=== PATIENT | female | born 1960 | race American Indian/Alaskan Native ===

== ENCOUNTER 2021-07-25 19:44 | Emergency (ER) | payer BC, OTHER ==
[~2021-07-25] VITALS: Ht 154.9 cm; Wt 62.6 kg
[~2021-07-25 19:44] MED LIST: AMOXICILLIN500 MG PO; AUGMENTIN 875-1 EACH PO; CIPRO500 MG PO; CLARITHROMYCIN500 MG PO; CLINDAMYCIN HC300 MG PO; FLUCONAZOLE200 MG PO; METRONIDAZOLE500 MG PO; NORCO 5-325 TA1 EACH PO; OMEPRAZOLE20 MG PO; SYNTHROID100 MCG PO; SYNTHROID50 MCG PO; VITAMIN D5000 UNIT PO
[2021-07-25] MEDS ORDERED: SYNTHROID50 MCG PO (21:40)
== END 2021-07-25 23:13 | disposition home or self-care (01) ==
LOC: ED 19:44
DX: R35.0 Frequency of micturition (principal); R10.30 Lower abdominal pain, unspecified; E03.9 Hypothyroidism, unspecified; Z87.891 Personal history of nicotine dependence; Z88.0 Allergy status to penicillin; Z88.2 Allergy status to sulfonamides; Z91.040 Latex allergy status; Z88.8 Allergy status to other drugs, medicaments and biological substances; Z79.899 Other long term (current) drug therapy
CPT/HCPCS: 81001; 99283

== ENCOUNTER 2021-11-15 21:59 | Emergency (ER) | payer BC, OTHER ==
[~2021-11-15] VITALS: Ht 154.9 cm; Wt 57.6 kg
== END 2021-11-16 02:27 | disposition home or self-care (01) ==
LOC: ED 21:59
DX: R10.31 Right lower quadrant pain (principal); R10.32 Left lower quadrant pain; E03.9 Hypothyroidism, unspecified; Z87.891 Personal history of nicotine dependence; Z88.0 Allergy status to penicillin; Z88.8 Allergy status to other drugs, medicaments and biological substances; Z88.1 Allergy status to other antibiotic agents; Z88.2 Allergy status to sulfonamides; Z91.040 Latex allergy status; Z79.899 Other long term (current) drug therapy
CPT/HCPCS: 36415; 74177; 80053; 81001; 83690; 85025; 96374; 99284-25; J1885; Q9967

== ENCOUNTER 2021-12-03 07:37 | Emergency (ER) | payer BC, OTHER ==
[~2021-12-03] VITALS: Ht 154.9 cm; Wt 57.6 kg
--- OUTSIDE RECORDS SUMMARY | 2021-12-03 07:40 | XMS ---
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 - 2 Visits in 30 Days CARE PROVIDERS There are no care providers on record at this time. Prosper has no Care Guidelines for this patient. Stephany VISIT COUNT (12 MO.) 3 [facility] TOTAL 3 NOTE: Visits indicate total known visits. 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 therapy - Allergy status to penicillin - Allergy status to other drugs, medicaments and biological substances - Allergy status to other antibiotic agents - Personal history of nicotine dependence - Hypothyroidism, unspecified - Allergy status to sulfonamides - Right lower quadrant pain - Dysuria 07/25/2021 19:44 [facility] [place] TYPE: Emergency COMPLAINT: - URINE PROBLEM DIAGNOSES: - Personal history of nicotine dependence - Hypothyroidism, unspecified - Lower abdominal pain, unspecified - Other long term care pharmacist (current) drug therapy - Latex allergy status - Frequency of micturition - Urgency of urination - Allergy status to sulfonamides - Allergy status to penicillin - Allergy status to other drugs, medicaments and biological substances INPATIENT VISIT TRACKING (12 MO.) No inpatient visits to display in this time frame [email or web address]
== END 2021-12-03 11:23 | disposition home or self-care (01) ==
LOC: ED 07:37
DX: R10.32 Left lower quadrant pain (principal); K59.00 Constipation, unspecified; E03.9 Hypothyroidism, unspecified; Z87.891 Personal history of nicotine dependence; Z88.0 Allergy status to penicillin; Z88.2 Allergy status to sulfonamides; Z91.040 Latex allergy status; Z88.8 Allergy status to other drugs, medicaments and biological substances
CPT/HCPCS: 36415; 74177; 80053; 81001; 83690; 85025; 96361; 96374; 99284-25; J1885; J7030; Q9967

== ENCOUNTER 2022-03-06 22:06 | Emergency (ER) | payer BC, OTHER ==
[~2022-03-06] VITALS: Ht 154.9 cm; Wt 57.6 kg
--- OUTSIDE RECORDS SUMMARY | 2022-03-06 22:08 | XMS ---
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 Prosper has no Care Guidelines for this patient. Stephany VISIT COUNT (12 MO.) 4 [facility] TOTAL 4 NOTE: Visits indicate total known visits. ED/UCC VISIT TRACKING (12 MO.) 03/06/2022 22:06 [facility] [place] TYPE: Emergency COMPLAINT: - ABDOMINAL PAIN/POST OP PROBLEM 12/03/2021 07:[address] [facility] [place] TYPE: Emergency COMPLAINT: - LOWER L ABD PAIN, RACING HEART, NAUSEA, DIZZY DIAGNOSES: - Allergy status to penicillin - Hypothyroidism, unspecified - Allergy status to other drugs, medicaments and biological substances - Allergy status to sulfonamides - Personal history of nicotine dependence - Latex allergy status - Constipation, unspecified - Left lower quadrant pain 11/15/2021 22:00 [facility] [place] TYPE: Emergency COMPLAINT: - URINE PROBLEM DIAGNOSES: - Dysuria - Left lower quadrant pain - Allergy status to sulfonamides - Personal history of nicotine dependence - Allergy status to other drugs, medicaments and biological substances - 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
[2022-03-06] MEDS ORDERED: HYDROCODON-ACE1 EA10 PO (22:15)
[2022-03-06] MEDS ORDERED: ONDANSETRON ODT8 MG PO (23:51)
[2022-03-06] MEDS ORDERED: DILAUDID2 MG PO (23:51)
[2022-03-06] MEDS ORDERED: CIPRO500 MG PO (23:51)
== END 2022-03-07 01:04 | disposition home or self-care (01) ==
LOC: ED 22:06
DX: N13.2 Hydronephrosis with renal and ureteral calculous obstruction (principal); E03.9 Hypothyroidism, unspecified; Z87.891 Personal history of nicotine dependence; Z88.0 Allergy status to penicillin; Z88.8 Allergy status to other drugs, medicaments and biological substances; Z88.2 Allergy status to sulfonamides; Z91.040 Latex allergy status; Z79.899 Other long term (current) drug therapy
CPT/HCPCS: 36415; 74176; 80053; 81001; 85025; 87088; 96374; 96375; 99284-25; A9270; J1170; J1885; J2405; J7030

== ENCOUNTER 2023-01-09 11:09 | Emergency (ER) | payer BC, OTHER ==
[~2023-01-09] VITALS: Ht 154.9 cm; Wt 62.3 kg
--- OUTSIDE RECORDS SUMMARY | ~2023-01-09 | XMS | Continuity of Care Document ---
Demographics + + + | Address | [address] | | | [place] [address] | + + + | Preferred Language | Unknown | + + + | Marital Status | | + + + | Bahai Affiliation | Unknown | + + + | Race | or | + + + | Ethnic Group | Not or | + + + Author + + + | Author | [facility] | + + + | Organization | [facility] | + + + | Address | [address] | | | [place] [address] | + + + | Phone | | + + + Care Team Providers + + + + | Care Maintenance Repairer Name | Role | Phone | + + + + Unavailable | Unavailable | + + + + Unavailable | Unavailable | + + + + Allergies and Intolerances + + + + + + | date | description | facility | reaction | severity | + + + + + + | (no date) | Urticaria | [facility] | (no reaction) | (no severity) | [facility] | | | + + + + + + | (no date) | Latex | [facility] | (no reaction) | (no severity) | [facility] | | | + + + + + + | (no date) | latex | [facility] | (no reaction) | (no severity) | [facility] | | | + + + + + + | (no date) | Mild | [facility] | (no reaction) | (no severity) | [facility] | | | + + + + + + | (no date) | Rash | [facility] | (no reaction) | (no severity) | [facility] | | | + + + + + + | (no date) | Latex | [facility] | (no reaction) | (no severity) | | [facility] | | | + + + + + + | (no date) | Penicillin | [facility] | (no reaction) | (no severity) | | [facility] | | | + + + + + + | (no date) | Amoxicillin | [facility] | (no reaction) | (no severity) | | [facility] | | | + + + + + + | (no date) | amoxicillin | [facility] | (no reaction) | (no severity) | | [facility] | | | + + + + + + | (no date) | Amoxicillin | [facility] | (no reaction) | (no severity) | | [facility] | | | + + + + + + | (no date) | Penicillins | [facility] | (no reaction) | (no severity) | + + + + + + | (no date) | Sulfa | [facility] | (no reaction) | (no severity) | | | (Sulfonamide | | | | | | Antibiotics) | | | | + + + + + + | (no date) | clavulanic | [facility] | (no reaction) | (no severity) | | | acid | | | | + + + + + + | (no date) | amoxicillin | [facility] | (no reaction) | (no severity) | + + + + + + | (no date) | latex | [facility] | (no reaction) | (no severity) | + + + + + + | (no date) | Latex | [facility] | (no reaction) | (no severity) | [facility] | | | + + + + + + | (no date) | Penicillin | [facility] | (no reaction) | (no severity) | [facility] | | | + + + + + + | (no date) | Penicillin | [facility] | (no reaction) | (no severity) | | [facility] | | | + + + + + + Encounters No information. Functional Status No information. Immunizations No information. Medications + + + + | date | description | facility | + + + + | 2021-12-10 00:00 | CLARITHROMYCIN | [facility] | + + + + | 2022-03-07 00:00 | CLARITHROMYCIN | [facility] | + + + + | 2021-12-10 00:00 | FLUCONAZOLE | [facility] | + + + + | 2022-03-07 00:00 | FLUCONAZOLE | [facility] | + + + + | 2021-12-10 00:00 | OMEPRAZOLE | [facility] | + + + + | 2022-03-07 00:00 | OMEPRAZOLE | [facility] | + + + + | 2014-02-27 00:00 | CIPROFLOXACIN HCL | [facility] | + + + + | 2022-03-06 00:00 | CIPROFLOXACIN HCL | [facility] | + + + + | 2021-12-10 00:00 | CLINDAMYCIN HCL | [facility] | + + + + | 2022-03-07 00:00 | CLINDAMYCIN HCL | [facility] | + + + + | 2021-12-10 00:00 | AMOXICILLIN | [facility] | + + + + | 2022-03-07 00:00 | AMOXICILLIN | [facility] | + + + + | 2021-12-10 00:00 | METRONIDAZOLE | [facility] | + + + + | 2022-03-07 00:00 | METRONIDAZOLE | [facility] | + + + + | 2022-03-06 00:00 | ONDANSETRON | [facility] | + + + + | 2022-03-07 00:00 | HYDROCODONE | [facility] | | | BIT/ACETAMINOPHEN | | + + + + | 2014-05-29 00:00 | HYDROCODONE | [facility] | | | BIT/ACETAMINOPHEN | | + + + + | 2021-12-10 00:00 | HYDROCODONE | [facility] | | | BIT/ACETAMINOPHEN | | + + + + | 2022-03-07 00:00 | HYDROCODONE | [facility] | | | BIT/ACETAMINOPHEN | | + + + + | 2021-12-10 00:00 | CHOLECALCIFEROL (VITAMIN | [facility] | | | D3) | | + + + + | 2022-03-07 00:00 | CHOLECALCIFEROL (VITAMIN | [facility] | | | D3) | | + + + + | 2022-03-06 00:00 | HYDROMORPHONE HCL | [facility] | + + + + | 2021-12-10 00:00 | LEVOTHYROXINE SODIUM | [facility] | + + + + | 2022-03-07 00:00 | LEVOTHYROXINE SODIUM | [facility] | + + + + | 2021-12-10 00:00 | LEVOTHYROXINE SODIUM | [facility] | + + + + | 2022-03-07 00:00 | LEVOTHYROXINE SODIUM | [facility] | + + + + Problems + + + + | date | description | facility | + + + + | 2014-02-27 00:00 | Cystitis | [facility] | + + + + | 2014-02-27 00:00 | Urinary tract infection | [facility] | + + + + | 2014-05-08 00:00 | Sinusitis | [facility] | + + + + | 2014-05-10 00:00 | Chest pain | [facility] | + + + + | 2014-05-29 00:00 | Toothache | [facility] | + + + + | 2014-06-07 00:00 | Chest discomfort | [facility] | + + + + | 2014-06-07 00:00 | Musculoskeletal chest pain | [facility] | | | | | + + + + | 2014-06-07 00:00 | Adverse reaction to drug | [facility] | + + + + | 2016-07-24 00:00 | Upper gastrointestinal | [facility] | | | distress | | + + + + | 2021-07-25 00:00 | Abdominal cramps | [facility] | + + + + | 2021-07-25 00:00 | Increased frequency of | [facility] | | | urination | | + + + + | 2021-11-15 22:00 | Right lower quadrant pain | [facility] | + + + + | 2021-11-15 22:00 | Left lower quadrant pain | [facility] | + + + + | 2021-11-15 22:00 | Dysuria | [facility] | + + + + | 2021-11-16 00:00 | Abdominal pain | [facility] | + + + + | 2022-03-06 00:00 | Calculus of ureter | [facility] | + + + + | 2022-08-12 14:19 | PAIN IN RIGHT SHOULDER | [facility] | + + + + | 2022-08-12 14:19 | PAIN IN LEFT SHOULDER | [facility] | + + + + | 2022-08-12 14:19 | CERVICALGIA | [facility] | + + + + | 2022-09-02 15:48 | PAIN IN RIGHT SHOULDER | [facility] | + + + + | 2022-09-02 15:48 | PAIN IN LEFT SHOULDER | [facility] | + + + + | 2022-11-04 10:53 | PAIN IN RIGHT SHOULDER | [facility] | + + + + | 2022-11-04 10:53 | PAIN IN LEFT SHOULDER | [facility] | + + + + | 2022-11-29 12:37 | 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 Results/Labs +--------+--------+ +---------+--------+---------+ | test | date | facility | value | unit | notes | +--------+--------+ +---------+--------+---------+ + + | Result panel 1 | + + + + + +------+ + + | | 2021-07-25 | [facility] | 89 | (missing) | (missing) | | (unavailable | 22:37 [facility] | | | + + + +------+ + + + + | Result panel 2 | + + + + + +--------+ + + | | 2021-11-15 | [facility] | 52.3 | (missing) | (missing) | | (unavailable | 00:34 [facility] | | | | + + + +--------+ + + + + | Result panel 3 | + + + + + +--------+ + + | | 2021-11-15 | [facility] | 38.4 | (missing) | (missing) | | (unavailable | 00:34 [facility] | | | | + + + +--------+ + + + + | Result panel 4 | + + + + + +-------+ + + | | 2021-11-15 | [facility] | 6.4 | (missing) | (missing) | | (unavailable | 00:34 [facility] | | | | + + + +-------+ + + + + | Result panel 5 | + + + + + +-------+ + + | | 2021-11-15 | [facility] | 1.8 | (missing) | (missing) | | (unavailable | 00:34 [facility] | | | | + + + +-------+ + + + + | Result panel 6 | + + + + + +-------+ + + | | 2021-11-15 | [facility] | 1.1 | (missing) | (missing) | | (unavailable | 00:34 [facility] | | | + + + +-------+ + + + + | Result panel 7 | + + + + + +-------+ + + | | 2021-11-15 | [facility] | 2-3 | (missing) | (missing) | | (unavailable | 22:13 [facility] | | | + + + +-------+ + + + + | Result panel 8 | + + + + + +-------+ + + | | 2021-11-15 | [facility] | 2-3 | (missing) | (missing) | | (unavailable | 22:13 [facility] | | | | + + + +-------+ + + + + | Result panel 9 | + + + + + + + + + | | 2021-11-15 | [facility] | SQUAMOUS 1+ | (missing) | (missing) | | (unavailable | 22:13 [facility] | | | + + + + + + + + + | Result panel 10 | + + + + + + + + + | | 2021-11-15 | [facility] | NONE SEEN | (missing) | (missing) | | (unavailable | 22:13 [facility] | | | + + + + + + + + + | Result panel 11 | + + + + + + + + + | | 2021-11-15 | [facility] | NONE SEEN | (missing) | (missing) | | (unavailable | 22:13 [facility] | | | + + + + + + + + + | Result panel 12 | + + + + + + + + + | | 2021-11-15 | [facility] | NONE SEEN | (missing) | (missing) | | (unavailable | 22:13 [facility] | | | + + + + + + + + + | Result panel 13 | + + + + + +------+ + + | | 2021-11-15 | [facility] | No | (missing) | (missing) | | (unavailable | 22:13 [facility] | | | | + + + +------+ + + + + | Result panel 14 | + + + + + + + + + | | 2021-11-15 | [facility] | CLEAN CATCH | (missing) | (missing) | | (unavailable | 22:13 [facility] | | | | + + + + + + + + + | Result panel 15 | + + + + + +-------+ + + | | 2021-12-03 | [facility] | 6.1 | (missing) | (missing) | | (unavailable | 08:03 [facility] | | | | + + + +-------+ + + + + | Result panel 16 | + + + + + +------+ + + | | 2021-12-03 | [facility] | 41 | (missing) | (missing) | | (unavailable | 08:03 [facility] | | | + + + +------+ + + + + | Result panel 17 | + + + + + +------+ + + | | 2021-12-03 | [facility] | 54 | (missing) | (missing) | | (unavailable | 08:03 [facility] | | | + + + +------+ + + + + | Result panel 18 | + + + + + +-----+ + + | | 2021-12-03 | [facility] | 2 | (missing) | (missing) | | (unavailable | 08:03 [facility] | | | + + + +-----+ + + + + | Result panel 19 | + + + + + +-----+ + + | | 2021-12-03 | [facility] | 1 | (missing) | (missing) | | (unavailable | 08:03 [facility] | | | + + + +-----+ + + + + | Result panel 20 | + + + + + +-----+ + + | | 2021-12-03 | [facility] | 1 | (missing) | (missing) | | (unavailable | 08:03 [facility] | | | + + + +-----+ + + + + | Result panel 21 | + + + + + +-----+ + + | | 2021-12-03 | [facility] | 1 | (missing) | (missing) | | (unavailable | 08:03 [facility] | | | + + + +-----+ + + + + | Result panel 22 | + + + + + +--------+ + + | | 2021-12-03 | [facility] | 4.83 | (missing) | (missing) | | (unavailable | 08:03 [facility] | | | + + + +--------+ + + + + | Result panel 23 | + + + + + +------+---------+ + | | 2021-12-03 | [facility] | 93 | mg/dL | (missing) | | (unavailable | 08:03 [facility] | | | | + + + +------+---------+ + + + | Result panel 24 | + + + + + +------+---------+ + | | 2021-12-03 | [facility] | 25 | mg/dL | (missing) | | (unavailable | 08:03 [facility] | | | | + + + +------+---------+ + + + | Result panel 25 | + + + + + +--------+ + + | | 2021-12-03 | [facility] | 13.5 | (missing) | (missing) | | (unavailable | 08:03 [facility] | | | + + + +--------+ + + + + | Result panel 26 | + + + + + +--------+---------+ + | | 2021-12-03 | [facility] | 0.79 | mg/dL | (missing) | | (unavailable | 08:03 [facility] | | | + + + +--------+---------+ + + + | Result panel 27 | + + + + + +------+ + + | | 2021-12-03 | [facility] | 86 | (missing) | (missing) | | (unavailable | 08:03 [facility] | | | + + + +------+ + + + + | Result panel 28 | + + + + + +---------+ + + | | 2021-12-03 | [facility] | 31.64 | (missing) | (missing) | | (unavailable | 08:03 [facility] | | | + + + +---------+ + + + + | Result panel 29 | + + + + + +-------+ + + | | 2021-12-03 | [facility] | 142 | (missing) | (missing) | | (unavailable | 08:03 [facility] | | | + + + +-------+ + + + + | Result panel 30 | + + + + + +-------+ + + | | 2021-12-03 | [facility] | 3.7 | (missing) | (missing) | | (unavailable | 08:03 [facility] | | | | + + + +-------+ + + + + | Result panel 31 | + + + + + +-------+ + + | | 2021-12-03 | [facility] | 103 | (missing) | (missing) | | (unavailable | 08:03 [facility] | | | + + + +-------+ + + + + | Result panel 32 | + + + + + +------+ + + | | 2021-12-03 | [facility] | 29 | (missing) | (missing) | | (unavailable | 08:03 [facility] | | | + + + +------+ + + + + | Result panel 33 | + + + + + +--------+ + + | | 2021-12-03 | [facility] | 13.7 | (missing) | (missing) | | (unavailable | 08:03 [facility] | | | + + + +--------+ + + + + | Result panel 34 | + + + + + +-------+---------+ + | | 2021-12-03 | [facility] | 8.9 | mg/dL | (missing) | | (unavailable | 08:03 [facility] | | | + + + +-------+---------+ + + + | Result panel 35 | + + + + + +-------+ + + | | 2021-12-03 | [facility] | 7.0 | (missing) | (missing) | | (unavailable | 08:03 [facility] | | | + + + +-------+ + + + + | Result panel 36 | + + + + + +--------+ + + | | 2021-12-03 | [facility] | 40.6 | (missing) | (missing) | | (unavailable | 08:03 [facility] | | | + + + +--------+ + + + + | Result panel 37 | + + + + + +-------+ + + | | 2021-12-03 | [facility] | 3.8 | (missing) | (missing) | | (unavailable | 08:03 [facility] | | | + + + +-------+ + + + + | Result panel 38 | + + + + + +-------+ + + | | 2021-12-03 | [facility] | 3.2 | (missing) | (missing) | | (unavailable | 08:03 [facility] | | | + + + +-------+ + + + + | Result panel 39 | + + + + + +--------+ + + | | 2021-12-03 | [facility] | 1.19 | (missing) | (missing) | | (unavailable | 08:03 [facility] | | | + + + +--------+ + + + + | Result panel 40 | + + + + + +-------+ + + | | 2021-12-03 | [facility] | 0.6 | (missing) | (missing) | | (unavailable | 08:03 [facility] | | | + + + +-------+ + + + + | Result panel 41 | + + + + + +------+ + + | | 2021-12-03 | [facility] | 15 | (missing) | (missing) | | (unavailable | 08:03 [facility] | | | + + + +------+ + + + + | Result panel 42 | + + + + + +------+ + + | | 2021-12-03 | [facility] | 26 | (missing) | (missing) | | (unavailable | 08:03 [facility] | | | + + + +------+ + + + + | Result panel 43 | + + + + + +------+ + + | | 2021-12-03 | [facility] | 76 | (missing) | (missing) | | (unavailable | 08:03 [facility] | | | + + + +------+ + + + + | Result panel 44 | + + + + + +-------+ + + | | 2021-12-03 | [facility] | 113 | (missing) | (missing) | | (unavailable | 08:03 [facility] | | | + + + +-------+ + + + + | Result panel 45 | + + + + + +--------+ + + | | 2021-12-03 | [facility] | 84.0 | (missing) | (missing) | | (unavailable | 08:03 [facility] | | | + + + +--------+ + + + + | Result panel 46 | + + + + + +--------+ + + | | 2021-12-03 | [facility] | 27.9 | (missing) | (missing) | | (unavailable | 08:03 [facility] | | | + + + +--------+ + + + + | Result panel 47 | + + + + + +--------+ + + | | 2021-12-03 | [facility] | 33.2 | (missing) | (missing) | | (unavailable | 08:03 [facility] | | | + + + +--------+ + + + + | Result panel 48 | + + + + + +--------+ + + | | 2021-12-03 | [facility] | 13.8 | (missing) | (missing) | | (unavailable | 08:03 [facility] | | | + + + +--------+ + + + + | Result panel 49 | + + + + + +-------+ + + | | 2021-12-03 | [facility] | 211 | (missing) | (missing) | | (unavailable | 08:03 [facility] | | | + + + +-------+ + + + + | Result panel 50 | + + + + + + + + + | | 2021-12-03 | [facility] | YELLOW | (missing) | (missing) | | (unavailable | 08:27 [facility] | | | + + + + + + + + + | Result panel 51 | + + + + + +---------+ + + | | 2021-12-03 | [facility] | CLEAR | (missing) | (missing) | | (unavailable | 08:27 [facility] | | | + + + +---------+ + + + + | Result panel 52 | + + + + + + + + + | | 2021-12-03 | [facility] | NEGATIVE | (missing) | (missing) | | (unavailable | 08:27 [facility] | | | + + + + + + + + + | Result panel 53 | + + + + + + + + + | | 2021-12-03 | [facility] | NEGATIVE | (missing) | (missing) | | (unavailable | 08:27 [facility] | | | + + + + + + + + + | Result panel 54 | + + + + + +---------+ + + | | 2021-12-03 | [facility] | SMALL | (missing) | (missing) | | (unavailable | 08:27 [facility] | | | + + + +---------+ + + + + | Result panel 55 | + + + + + + + + + | | 2021-12-03 | [facility] | <=1.005 | (missing) | (missing) | | (unavailable | 08:27 [facility] | | | + + + + + + + + + | Result panel 56 | + + + + + +---------+ + + | | 2021-12-03 | [facility] | SMALL | (missing) | (missing) | | (unavailable | 08:27 [facility] | | | + + + +---------+ + + + + | Result panel 57 | + + + + + +-------+ + + | | 2021-12-03 | [facility] | 5.5 | (missing) | (missing) | | (unavailable | 08:27 [facility] | | | | + + + +-------+ + + + + | Result panel 58 | + + + + + + + + + | | 2021-12-03 | [facility] | NEGATIVE | (missing) | (missing) | | (unavailable | 08:27 [facility] | | | + + + + + + + + + | Result panel 59 | + + + + + + + + + | | 2021-12-03 | [facility] | NORMAL | (missing) | (missing) | | (unavailable | 08:27 [facility] | | | + + + + + + + + + | Result panel 60 | + + + + + + + + + | | 2021-12-03 | [facility] | NEGATIVE | (missing) | (missing) | | (unavailable | 08:27 [facility] | | | | + + + + + + + + + | Result panel 61 | + + + + + + + + + | | 2021-12-03 | [facility] | NEGATIVE | (missing) | (missing) | | (unavailable | 08:27 [facility] | | | + + + + + + + + + | Result panel 62 | + + + + + +---------+ + + | | 2022-03-06 | [facility] | 10.27 | (missing) | (missing) | | (unavailable | 22:25 [facility] | | | + + + +---------+ + + + + | Result panel 63 | + + + + + +-------+ + + | | 2022-03-06 | [facility] | 142 | (missing) | (missing) | | (unavailable | 22:25 [facility] | | | + + + +-------+ + + + + | Result panel 64 | + + + + + +-------+ + + | | 2022-03-06 | [facility] | 4.2 | (missing) | (missing) | | (unavailable | 22:25 [facility] | | | + + + +-------+ + + + + | Result panel 65 | + + + + + +-------+ + + | | 2022-03-06 | [facility] | 102 | (missing) | (missing) | | (unavailable | 22:25 [facility] | | | + + + +-------+ + + + + | Result panel 66 | + + + + + +------+ + + | | 2022-03-06 | [facility] | 27 | (missing) | (missing) | | (unavailable | 22:25 [facility] | | | + + + +------+ + + + + | Result panel 67 | + + + + + +--------+ + + | | 2022-03-06 | [facility] | 17.2 | (missing) | (missing) | | (unavailable | 22:25 [facility] | | | + + + +--------+ + + + + | Result panel 68 | + + + + + +-------+---------+ + | | 2022-03-06 | [facility] | 9.4 | mg/dL | (missing) | | (unavailable | 22:25 [facility] | | | + + + +-------+---------+ + + + | Result panel 69 | + + + + + +-------+ + + | | 2022-03-06 | [facility] | 7.7 | (missing) | (missing) | | (unavailable | 22:25 [facility] | | | + + + +-------+ + + + + | Result panel 70 | + + + + + +-------+ + + | | 2022-03-06 | [facility] | 3.9 | (missing) | (missing) | | (unavailable | 22:25 [facility] | | | + + + +-------+ + + + + | Result panel 71 | + + + + + +-------+ + + | | 2022-03-06 | [facility] | 3.8 | (missing) | (missing) | | (unavailable | 22:25 [facility] | | | + + + +-------+ + + + + | Result panel 72 | + + + + + +--------+ + + | | 2022-03-06 | [facility] | 1.03 | (missing) | (missing) | | (unavailable | 22:25 [facility] | | | + + + +--------+ + + + + | Result panel 73 | + + + + + +-------+ + + | | 2022-03-06 | [facility] | 0.4 | (missing) | (missing) | | (unavailable | 22:25 | [facility] | | | | + + + +-------+ + + + + | Result panel 74 | + + + + + +------+ + + | | 2022-03-06 | [facility] | 50 | (missing) | (missing) | | (unavailable | 22:25 [facility] | | | | + + + +------+ + + + + | Result panel 75 | + + + + + +------+ + + | | 2022-03-06 | [facility] | 60 | (missing) | (missing) | | (unavailable | 22:25 | [facility] | | | | + + + +------+ + + + + | Result panel 76 | + + + + + +-------+ + + | | 2022-03-06 | [facility] | 107 | (missing) | (missing) | | (unavailable | 22:25 | [facility] | | | | + + + +-------+ + + + + | Result panel 77 | + + + + + +-------+ + + | | 2022-03-06 | [facility] | 9.1 | (missing) | (missing) | | (unavailable | 22:25 [facility] | | | | + + + +-------+ + + + + | Result panel 78 | + + + + + +--------+ + + | | 2022-03-06 | [facility] | 5.06 | (missing) | (missing) | | (unavailable | 22:25 | [facility] | | | | + + + +--------+ + + + + | Result panel 79 | + + + + + +--------+ + + | | 2022-03-06 | [facility] | 13.9 | (missing) | (missing) | | (unavailable | 22:25 | [facility] | | | | + + + +--------+ + + + + | Result panel 80 | + + + + + +--------+ + + | | 2022-03-06 | [facility] | 43.1 | (missing) | (missing) | | (unavailable | 22:25 | [facility] | | | | + + + +--------+ + + + + | Result panel 81 | + + + + + +--------+ + + | | 2022-03-06 | [facility] | 85.2 | (missing) | (missing) | | (unavailable | 22:25 | [facility] | | | | + + + +--------+ + + + + | Result panel 82 | + + + + + +--------+ + + | | 2022-03-06 | [facility] | 27.6 | (missing) | (missing) | | (unavailable | 22:25 | [facility] | | | | + + + +--------+ + + + + | Result panel 83 | + + + + + +--------+ + + | | 2022-03-06 | [facility] | 32.4 | (missing) | (missing) | | (unavailable | 22:25 | [facility] | | | | + + + +--------+ + + + + | Result panel 84 | + + + + + +--------+ + + | | 2022-03-06 | [facility] | 14.1 | (missing) | (missing) | | (unavailable | 22:25 | [facility] | | | | + + + +--------+ + + + + | Result panel 85 | + + + + + +-------+ + + | | 2022-03-06 | [facility] | 251 | (missing) | (missing) | | (unavailable | 22:25 | [facility] | | | | + + + +-------+ + + + + | Result panel 86 | + + + + + +--------+ + + | | 2022-03-06 | [facility] | 44.3 | (missing) | (missing) | | (unavailable | 22:25 | [facility] | | | | + + + +--------+ + + + + | Result panel 87 | + + + + + +--------+ + + | | 2022-03-06 | [facility] | 47.3 | (missing) | (missing) | | (unavailable | 22:25 [facility] | | | | + + + +--------+ + + + + | Result panel 88 | + + + + + +-------+ + + | | 2022-03-06 | [facility] | 5.8 | (missing) | (missing) | | (unavailable | 22:25 [facility] | | | | + + + +-------+ + + + + | Result panel 89 | + + + + + +-------+ + + | | 2022-03-06 | [facility] | 1.6 | (missing) | (missing) | | (unavailable | 22:25 [facility] | | | | + + + +-------+ + + + + | Result panel 90 | + + + + + +-------+ + + | | 2022-03-06 | [facility] | 1.0 | (missing) | (missing) | | (unavailable | 22:25 [facility] | | | | + + + +-------+ + + + + | Result panel 91 | + + + + + +-------+---------+ + | | 2022-03-06 | [facility] | 121 | mg/dL | (missing) | | (unavailable | 22:25 [facility] | | | | + + + +-------+---------+ + + + | Result panel 92 | + + + + + +------+---------+ + | | 2022-03-06 | [facility] | 15 | mg/dL | (missing) | | (unavailable | 22:25 [facility] | | | | + + + +------+---------+ + + + | Result panel 93 | + + + + + +--------+---------+ + | | 2022-03-06 | [facility] | 1.46 | mg/dL | (missing) | | (unavailable | 22:25 [facility] | | | | + + + +--------+---------+ + + + | Result panel 94 | + + + + + +------+ + + | | 2022-03-06 | [facility] | 41 | (missing) | (missing) | | (unavailable | 22:25 [facility] | | | + + + +------+ + + + + | Result panel 95 | + + + + + + + + + | | 2022-03-07 | [facility] | YELLOW | (missing) | (missing) | | (unavailable | 00:15 [facility] | | | | + + + + + + + + + | Result panel 96 | + + + + + +---------+ + + | | 2022-03-07 | [facility] | CLEAR | (missing) | (missing) | | (unavailable | 00:15 [facility] | | | + + + +---------+ + + + + | Result panel 97 | + + + + + + + + + | | 2022-03-07 | [facility] | NEGATIVE | (missing) | (missing) | | (unavailable | 00:15 [facility] | | | | + + + + + + + + + | Result panel 98 | + + + + + + + + + | | 2022-03-07 | [facility] | NEGATIVE | (missing) | (missing) | | (unavailable | 00:15 [facility] | | | | + + + + + + + + + | Result panel 99 | + + + + + + + + + | | 2022-03-07 | [facility] | NEGATIVE | (missing) | (missing) | | (unavailable | 00:15 [facility] | | | | + + + + + + + + + | Result panel 100 | + + + + + +---------+ + + | | 2022-03-07 | [facility] | 1.010 | (missing) | (missing) | | (unavailable | 00:15 [facility] | | | | + + + +---------+ + + + + | Result panel 101 | + + + + + +---------+ + + | | 2022-03-07 | [facility] | LARGE | (missing) | (missing) | | (unavailable | 00:15 [facility] | | | | + + + +---------+ + + + + | Result panel 102 | + + + + + +-------+ + + | | 2022-03-07 | [facility] | 6.0 | (missing) | (missing) | | (unavailable | 00:15 [facility] | | | | + + + +-------+ + + + + | Result panel 103 | + + + + + + + + + | | 2022-03-07 | [facility] | NEGATIVE | (missing) | (missing) | | (unavailable | 00:15 [facility] | | | | + + + + + + + + + | Result panel 104 | + + + + + + + + + | | 2022-03-07 | [facility] | NORMAL | (missing) | (missing) | | (unavailable | 00:15 [facility] | | | | + + + + + + + + + | Result panel 105 | + + + + + + + + + | | 2022-03-07 | [facility] | NEGATIVE | (missing) | (missing) | | (unavailable | 00:15 [facility] | | | | + + + + + + + + + | Result panel 106 | + + + + + +---------+ + + | | 2022-03-07 | [facility] | SMALL | (missing) | (missing) | | (unavailable | 00:15 [facility] | | | | + + + +---------+ + + + + | Result panel 107 | + + + + + +-------+ + + | | 2022-03-07 | [facility] | 2-3 | (missing) | (missing) | | (unavailable | 00:15 [facility] | | | | + + + +-------+ + + + + | Result panel 108 | + + + + + +--------+ + + | | 2022-03-07 | [facility] | 7-11 | (missing) | (missing) | | (unavailable | 00:15 [facility] | | | | + + + +--------+ + + + + | Result panel 109 | + + + + + + + + + | | 2022-03-07 | [facility] | SQUAMOUS 1+ | (missing) | (missing) | | (unavailable | 00:15 [facility] | | | | + + + + + + + + + | Result panel 110 | + + + + + + + + + | | 2022-03-07 | [facility] | NONE SEEN | (missing) | (missing) | | (unavailable | 00:15 [facility] | | | | + + + + + + + + + | Result panel 111 | + + + + + + + + + | | 2022-03-07 | [facility] | NONE SEEN | (missing) | (missing) | | (unavailable | 00:15 [facility] | | | | + + + + + + + + + | Result panel 112 | + + + + + + + + + | | 2022-03-07 | [facility] | NONE SEEN | (missing) | (missing) | | (unavailable | 00:15 [facility] | | | | + + + + + + + + + | Result panel 113 | + + + + + +-------+ + + | | 2022-03-07 | [facility] | Yes | (missing) | (missing) | | (unavailable | 00:15 [facility] | | | | + + + +-------+ + + + + | Result panel 114 | + + + + + + + + + | | 2022-03-07 | [facility] | CLEAN CATCH | (missing) | (missing) | | (unavailable | 00:15 [facility] | | | | + + + + + + + Social History No information. Vital Signs + + + +---------+ | date | measurement | value | units | + + + +---------+ | 2021-07-25 00:00 | BMI | 26.1 | kg/m2 | + + + +---------+ | 2021-07-25 00:00 | BP_diastolic | 78 | mmHg | + + + +---------+ | 2021-07-25 00:00 | BP_systolic | 138 | mmHg | + + + +---------+ | 2021-07-25 00:00 | heart_rate | 68 | /min | + + + +---------+ | 2021-07-25 00:00 | height_metric | 154.94 | cm | + + + +---------+ | 2021-07-25 00:00 | height_standard | 61 | in | + + + +---------+ | 2021-07-25 00:00 | o2_saturation | 99 | % | + + + +---------+ | 2021-07-25 00:00 | respiration_rate | 17 | /min | + + + +---------+ | 2021-07-25 00:00 | temperature_metric | 36.72 | C | | | | | | + + + +---------+ | 2021-07-25 00:00 | | 98.1 | F | | | temperature_standar | | | | | d | | | + + + +---------+ | 2021-07-25 00:00 | weight_metric | 62.6 | kg | + + + +---------+ | 2021-07-25 00:00 | weight_standard | 138 | lb | + + + +---------+ | 2021-07-25 00:00 | weight_standard | 138.01 | lb | + + + +---------+ | 2021-11-15 00:00 | BMI | 24.0 | kg/m2 | + + + +---------+ | 2021-11-15 00:00 | height_metric | 154.94 | cm | + + + +---------+ | 2021-11-15 00:00 | height_standard | 61 | in | + + + +---------+ | 2021-11-15 00:00 | weight_metric | 57.61 | kg | + + + +---------+ | 2021-11-15 00:00 | weight_standard | 127 | lb | + + + +---------+ | 2021-11-15 00:00 | weight_standard | 127.01 | lb | + + + +---------+ | 2021-11-16 00:00 | BP_diastolic | 69 | mmHg | + + + +---------+ | 2021-11-16 00:00 | BP_systolic | 104 | mmHg | + + + +---------+ | 2021-11-16 00:00 | heart_rate | 68 | /min | + + + +---------+ | 2021-11-16 00:00 | o2_saturation | 97 | % | + + + +---------+ | 2021-11-16 00:00 | respiration_rate | 15 | /min | + + + +---------+ | 2021-11-16 00:00 | temperature_metric | 36.78 | C | | | | | | + + + +---------+ | 2021-11-16 00:00 | | 98.2 | F | | | temperature_standar | | | | | d | | | + + + +---------+ | 2021-12-03 00:00 | BMI | 24.0 | kg/m2 | + + + +---------+ | 2021-12-03 00:00 | BP_diastolic | 89 | mmHg | + + + +---------+ | 2021-12-03 00:00 | BP_systolic | 136 | mmHg | + + + +---------+ | 2021-12-03 00:00 | heart_rate | 86 | /min | + + + +---------+ | 2021-12-03 00:00 | height_metric | 154.94 | cm | + + + +---------+ | 2021-12-03 00:00 | height_standard | 61 | in | + + + +---------+ | 2021-12-03 00:00 | o2_saturation | 97 | % | + + + +---------+ | 2021-12-03 00:00 | respiration_rate | 16 | /min | + + + +---------+ | 2021-12-03 00:00 | temperature_metric | 36.83 | C | | | | | | + + + +---------+ | 2021-12-03 00:00 | | 98.3 | F | | | temperature_standar | | | | | d | | | + + + +---------+ | 2021-12-03 00:00 | weight_metric | 57.61 | kg | + + + +---------+ | 2021-12-03 00:00 | weight_standard | 127 | lb | + + + +---------+ | 2022-03-06 00:00 | BMI | 24.0 | kg/m2 | + + + +---------+ | 2022-03-06 00:00 | height_metric | 154.94 | cm | + + + +---------+ | 2022-03-06 00:00 | height_standard | 61 | in | + + + +---------+ | 2022-03-06 00:00 | weight_metric | 57.61 | kg | + + + +---------+ | 2022-03-06 00:00 | weight_standard | 127 | lb | + + + +---------+ | 2022-03-06 00:00 | weight_standard | 127.01 | lb | + + + +---------+ | 2022-03-07 00:00 | BP_diastolic | 72 | mmHg | + + + +---------+ | 2022-03-07 00:00 | BP_systolic | 112 | mmHg | + + + +---------+ | 2022-03-07 00:00 | heart_rate | 84 | /min | + + + +---------+ | 2022-03-07 00:00 | o2_saturation | 94 | % | + + + +---------+ | 2022-03-07 00:00 | respiration_rate | 16 | /min | + + + +---------+ | 2022-03-07 00:00 | temperature_metric | 36.67 | C | | | | | | + + + +---------+ | 2022-03-07 00:00 | | 98 | F | | | temperature_standar | | | | | d | | | + + + +---------+"
--- OUTSIDE RECORDS SUMMARY | ~2023-01-09 | XMS | Continuity of Care Document ---
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 | Role | Phone | + [...] 2021-12-10 00:00 | CLARITHROMYCIN | [facility] | + + + + | 2022-03-07 00:00 | CLARITHROMYCIN | [facility] | + + + + | 2021-12-10 00:00 | FLUCONAZOLE | [facility] | + + + + | 2022-03-07 00:00 | FLUCONAZOLE | [facility] | + + + + | 2021-12-10 00:00 | OMEPRAZOLE | [facility] | + + + + | 2022-03-07 00:00 | OMEPRAZOLE | [facility] | + + + + | 2014-02-27 00:00 | CIPROFLOXACIN HCL | [facility] | + + + + | 2022-03-06 00:00 | CIPROFLOXACIN HCL | [facility] | + + + + | 2021-12-10 00:00 | CLINDAMYCIN HCL | [facility] | + + + + | 2022-03-07 00:00 | CLINDAMYCIN HCL | [facility] | + + + + | 2021-12-10 00:00 | AMOXICILLIN | [facility] | + + + + | 2022-03-07 00:00 | AMOXICILLIN | [facility] | + + + + | 2021-12-10 00:00 | METRONIDAZOLE | [facility] | + + + + | 2022-03-07 00:00 | METRONIDAZOLE | [facility] | + + + + | 2022-03-06 00:00 | ONDANSETRON | [facility] | + + + + | 2022-03-07 00:00 | HYDROCODONE | [facility] | | | BIT/ACETAMINOPHEN | | + + + + | 2014-05-29 00:00 | HYDROCODONE | [facility] | | | BIT/ACETAMINOPHEN | | + + + + | 2021-12-10 00:00 | HYDROCODONE | [facility] | | | BIT/ACETAMINOPHEN | | + + + + | 2022-03-07 00:00 | HYDROCODONE | [facility] | | | BIT/ACETAMINOPHEN | | + + + + | 2021-12-10 00:00 | CHOLECALCIFEROL (VITAMIN | [facility] | | | D3) | | + + + + | 2022-03-07 00:00 | CHOLECALCIFEROL (VITAMIN | [facility] | | | D3) | | + + + + | 2022-03-06 00:00 | HYDROMORPHONE HCL | [facility] | + + + + | 2021-12-10 00:00 | LEVOTHYROXINE SODIUM | [facility] | + + + + | 2022-03-07 00:00 | LEVOTHYROXINE SODIUM | [facility] | + + + + | 2021-12-10 00:00 | LEVOTHYROXINE SODIUM | [facility] | + + + + | 2022-03-07 00:00 | LEVOTHYROXINE SODIUM | [facility] | + + + + Problems + + + + | date | description | facility | + + + + | 2014-02-27 00:00 | Cystitis | [facility] | + + + + | 2014-02-27 00:00 | Urinary tract infection | [facility] | + + + + | 2014-05-08 00:00 | Sinusitis | [facility] | + + + + | 2014-05-10 00:00 | Chest pain | [facility] | + + + + | 2014-05-29 00:00 | Toothache | [facility] | + + + + | 2014-06-07 00:00 | Chest discomfort | [facility] | + + + + | 2014-06-07 00:00 | Musculoskeletal chest pain | [facility] | | | | | + + + + | 2014-06-07 00:00 | Adverse reaction to drug | [facility] | + + + + | 2016-07-24 00:00 | Upper gastrointestinal | [facility] | | | distress | | + + + + | 2021-07-25 00:00 | Abdominal cramps | [facility] | + + + + | 2021-07-25 00:00 | Increased frequency of | [facility] | | | urination | | [...] | 2021-11-16 00:00 | Abdominal pain | [facility] | + + + + | 2022-03-06 00:00 | Calculus of ureter | [facility] | + + + + | [...] (missing) | | (unavailable | 22:25 | Macro | | | | | [...]
[~2023-01-09 11:09] MED LIST changes: +DILAUDID2 MG PO; +HYDROCODON-ACE1 EA10 PO; +ONDANSETRON ODT8 MG PO; +OXYBUTYNIN CHLO10 MG PO
--- OUTSIDE RECORDS SUMMARY | 2023-01-09 11:13 | XMS ---
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 Prosper has no Care Guidelines for this patient. Stephany VISIT COUNT (12 MO.) 2 [facility] Li TOTAL 2 NOTE: Visits indicate total known visits. ED/C VISIT TRACKING (12 MO.) 01/09/2023 11:11 [facility] [place] TYPE: Emergency COMPLAINT: - R ABD PAIN 03/06/2022 22:06 [facility] [place] TYPE: Emergency COMPLAINT: - ABDOMINAL PAIN/POST OP PROBLEM DIAGNOSES: - Allergy status to other drugs, medicaments and biological substances - Allergy status to penicillin - Allergy status to sulfonamides - Hydronephrosis with renal and ureteral calculous obstruction - Hypothyroidism, unspecified - Latex allergy status - Other alf (current) drug therapy - Personal history of nicotine dependence - Unspecified abdominal pain INPATIENT VISIT TRACKING (12 MO.) No inpatient visits to display in this time frame [id number]
[2023-01-09 11:28] LABS: BASOPHILS 0.8 % (0-2); EOSINOPHILS 0.9 % (0-6); HEMATOCRIT 40.4 % (35.0-50.0); HEMOGLOBIN 13.4 g/dL (12.0-18.0); LYMPHOCYTES 38.1 % (24-44); MCHC 33.1 g/dl (30-36); MCV 84.4 fl (81-99); MONOCYTES 7.1 % (0-12); NEUTROPHILS 53.1 % (39-80); PLATELET COUNT 218 K/uL (140-440); RBC 4.79 M/ul (4.3-5.7); RDW 14.8 (10.5-15.0)
[2023-01-09 11:44] LABS: ALBUMIN 4.4 g/dL (3.4-5.0); ALBUMIN/GLOBULIN RATIO 1.42 (1.1-2.4); ANION GAP 13.7 (7-21); BILIRUBIN, TOTAL 0.6 ng/dL (0.2-1.0); CALCIUM 9.5 mg/dL (8.5-10.1); POTASSIUM 3.7 mmol/L (3.5-5.1); PROTEIN, TOTAL 7.5 g/dL (6.4-8.2)
[2023-01-09 12:28] LABS: BILIRUBIN, URINE NEGATIVE (negative); BLOOD/HGB, URINE LARGE (Negative); KETONE, URINE NEGATIVE (Negative); LEUK ESTERASE, URINE NEGATIVE (negative); NITRITE, URINE POSITIVE (negative); PH, URINE 7.5 (5-7)
[2023-01-09 12:46] LABS: BACTERIA, URINE NONE SEEN /hpf (negative); CASTS, URINE NONE SEEN \\lpf; COLLECTION TYPE, URINE CLEAN CATCH; CRYSTALS, URINE NONE SEEN (0-1+); EPITHELIAL CELLS, URINE 0 /lpf (0-1+); RED BLOOD CELLS, URINE 41-50 /hpf (0-5); REFLEX CULTURE, URINE No (No); WHITE BLOOD CELLS, URINE 0-1 /HPF (0-5)
[2023-01-09] MEDS ORDERED: LEVOFLOXACIN500 MG PO (13:36)
[2023-01-09] MEDS ORDERED: PERCOCET 5-3251 EACH PO (13:36)
[2023-01-09] MEDS ORDERED: ONDANSETRON ODT4 MG PO (13:36)
[2023-01-09] MEDS ORDERED: PHENAZOPYRIDIN200 MG PO (14:05)
[2023-01-09] MEDS ORDERED: FLOMAX0.4 MG PO (14:05)
[2023-01-09] MEDS ORDERED: MACROBID 100 M100 MG PO (14:29)
[2023-01-09 14:44] VITALS: BP 114/61
[2023-01-10] MEDS ORDERED: OXYCODONE-ACET1 EAC1 PO (01:05)
== END 2023-01-09 14:47 | disposition home or self-care (01) ==
LOC: ED 11:09
PROVIDERS: Family Medicine
DX: N12 Tubulo-interstitial nephritis, not specified as acute or chronic (principal); E03.9 Hypothyroidism, unspecified; Z87.891 Personal history of nicotine dependence; Z88.0 Allergy status to penicillin; Z88.8 Allergy status to other drugs, medicaments and biological substances; Z88.2 Allergy status to sulfonamides; Z91.040 Latex allergy status; Z79.899 Other long term (current) drug therapy
CPT/HCPCS: 36415; 74176; 80053; 81001; 85025; 96374; 96375; 99284-25; J1170; J1200; J1885; J1956; J2405; J7030

== ENCOUNTER 2023-01-12 11:01 | Emergency (ER) | payer BC, OTHER | END 2023-01-12 12:42 | disposition home or self-care (01) | LOC: ED 11:01 | DX: N12 Tubulo-interstitial nephritis, not specified as acute or chronic (principal); E03.9 Hypothyroidism, unspecified; Z88.0 Allergy status to penicillin; Z88.1 Allergy status to other antibiotic agents; Z88.2 Allergy status to sulfonamides; Z91.040 Latex allergy status ==

== ENCOUNTER 2023-10-04 18:47 | Emergency (ER) | payer BC, OTHER ==
[~2023-10-04] VITALS: Ht 154.9 cm; Wt 64.7 kg
[~2023-10-04 18:47] MED LIST changes: +FLOMAX0.4 MG PO; +KETOROLAC TROME10 MG PO; +LEVOFLOXACIN500 MG PO; +MACROBID 100 M100 MG PO; +ONDANSETRON ODT4 MG PO; +OXYCODONE-ACET1 EAC1 PO; +PERCOCET 5-3251 EACH PO; +PHENAZOPYRIDIN200 MG PO
--- OUTSIDE RECORDS SUMMARY | 2023-10-04 18:50 | XMS ---
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 [facility] has no Care Guidelines for this patient. Stephany VISIT COUNT (12 MO.) 4 [facility] TOTAL 4 NOTE: Visits indicate total known visits. ED/C VISIT TRACKING (12 MO.) 10/04/2023 18:48 [facility] TYPE: Emergency COMPLAINT: - LEFT EYE INJURY 01/12/2023 11:01 [facility] TYPE: Emergency COMPLAINT: - FLANK PAIN DIAGNOSES: - Allergy status to other antibiotic agents - Allergy status to penicillin - Allergy status to sulfonamides - Hypothyroidism, unspecified - Latex allergy status - Tubulo-interstitial nephritis, not specified as acute or chronic - Unspecified abdominal pain 01/10/2023 00:29 [facility] TYPE: Emergency COMPLAINT: - RT SIDE PAIN DIAGNOSES: - Allergy status to penicillin - Allergy status to sulfonamides - Hormone replacement therapy - Hypothyroidism, unspecified - Latex allergy status - Other terminal carman (current) drug therapy - Personal history of nicotine dependence - Right lower quadrant pain - Unspecified abdominal pain - Urinary tract infection, site not specified 01/09/2023 11:11 [facility] TYPE: Emergency COMPLAINT: - R ABD PAIN DIAGNOSES: - Allergy status to other drugs, medicaments and biological substances - Allergy status to penicillin - Allergy status to sulfonamides - Hypothyroidism, unspecified - Latex allergy status - Other nursing home (current) drug therapy - Personal history of nicotine dependence - Tubulo-interstitial nephritis, not specified as acute or chronic - Unspecified abdominal pain INPATIENT VISIT TRACKING (12 MO.) No inpatient visits to display in this time frame [email or web address]
[2023-10-04] MEDS ORDERED: GABAPENTIN100 MG PO (19:05)
[2023-10-04] MEDS ORDERED: TETRACAINE HCL 0.5% 4 ML BTL OS ONE (19:30)
[2023-10-04] MEDS ORDERED: MAXITROL EYE DRO5 ML OPTH (19:41)
[2023-10-04] MEDS ORDERED: NEOMYCIN/POLYMYXIN/DEXAMETH OPTH SUSPENSION BOTTLE OS ONE (19:45)
[2023-10-04 20:15] VITALS: BP 122/76
== END 2023-10-04 20:18 | disposition home or self-care (01) ==
LOC: ED 18:47
DX: T15.92XA Foreign body on external eye, part unspecified, left eye, initial encounter (principal); E03.9 Hypothyroidism, unspecified; Z87.891 Personal history of nicotine dependence; Z88.0 Allergy status to penicillin; Z88.1 Allergy status to other antibiotic agents; Z88.2 Allergy status to sulfonamides; Z91.040 Latex allergy status; Z79.890 Hormone replacement therapy; Z79.899 Other long term (current) drug therapy; W44.F9XA Other object of natural or organic material, entering into or through a natural orifice, initial encounter

== ENCOUNTER 2024-10-12 07:00 | Emergency (ER) | payer BC, OTHER ==
[~2024-10-12] VITALS: Ht 154.9 cm; Wt 60.3 kg
[~2024-10-12 07:00] MED LIST changes: +GABAPENTIN100 MG PO; +MAXITROL EYE DRO5 ML OPTH
[2024-10-12] MEDS ORDERED: TRAMADOL HCL50 MG PO (07:21)
[2024-10-12] MEDS ORDERED: ondansetron HCL 4 MG/2 ML VIAL IV ONE ×2 (07:30→07:45)
[2024-10-12 07:31] LABS: EOSINOPHILS 2.7 % (0-6); HEMOGLOBIN 13.4 g/dL (12.0-18.0); LYMPHOCYTES 38.1 % (24-44); MCH 28.2 (27-36); MCHC 34.3 g/dl (30-36); MCV 82.1 fl (81-99); NEUTROPHILS 50.2 % (39-80); PLATELET COUNT 211 K/uL (140-440); RBC 4.75 M/ul (4.3-5.7)
[2024-10-12] MEDS ORDERED: SODIUM CHLORIDE 0.9% 1,000 ML IV PRN (07:45)
[2024-10-12] MEDS ORDERED: HYDROmorphone HCL 1 MG/ML SYR IV ONE (07:45)
[2024-10-12 07:49] LABS: BILIRUBIN, URINE NEGATIVE (negative); BLOOD/HGB, URINE SMALL (Negative); KETONE, URINE SMALL (Negative); LEUK ESTERASE, URINE NEGATIVE (negative); NITRITE, URINE NEGATIVE (negative)
[2024-10-12 07:50] LABS: ALBUMIN 3.8 g/dL (3.4-5.0); ALBUMIN/GLOBULIN RATIO 1.23 (1.1-2.4); ANION GAP 7.7 (7-21); BILIRUBIN, TOTAL 0.5 mg/dL (0.2-1.0); BUN/CREATININE RATIO 18.47 (6.0-28.6); CALCIUM 8.6 mg/dL (8.5-10.1); CREATININE, SERUM 0.92 mg/dL (0.55-1.02); POTASSIUM 3.7 mmol/L (3.5-5.1); PROTEIN, TOTAL 6.9 g/dL (6.4-8.2)
[2024-10-12 07:55] LABS: BACTERIA, URINE NONE SEEN /hpf (negative); CASTS, URINE NONE SEEN \\lpf; COLLECTION TYPE, URINE CLEAN CATCH; CRYSTALS, URINE NONE SEEN (0-1+); RED BLOOD CELLS, URINE 0-1 /hpf (0-5); REFLEX CULTURE, URINE No (No)
[2024-10-12 07:56] LABS: EPITHELIAL CELLS, URINE SQUAMOUS 1+ /lpf (0-1+)
[2024-10-12 10:20] VITALS: BP 108/75
--- NOTE | 2024-10-12 13:06 | EKG ---
[facility] [address] [place] [address] Signed Normal sinus rhythm Normal ECG No previous ECGs available Confirmed by Daisy Pérez DO ([id number]) on 10/12/2024 1:06:17 PM Electronically Signed By: DAISY PÉREZ DO 10/12/24 1306 PATIENT NAME: VANNESSA BUTT Electrocardiogram DATE OF : 62 PHYSICIAN: DAISY PÉREZ DO REPORT #: [id number] REPORT IS CONFIDENTIAL AND NOT TO BE RELEASED WITHOUT AUTHORIZATION
== END 2024-10-12 10:20 | disposition home or self-care (01) ==
LOC: ED 07:00
PROVIDERS: Emergency Medicine
DX: R10.11 Right upper quadrant pain (principal); Z87.891 Personal history of nicotine dependence; Z88.0 Allergy status to penicillin; Z88.1 Allergy status to other antibiotic agents; Z88.2 Allergy status to sulfonamides; Z91.040 Latex allergy status; Z79.890 Hormone replacement therapy
CPT/HCPCS: 36415; 74177; 80053; 81001; 83690; 85025; 93005; 93010; 96375; 99284-25; J1171; J2405; J7030; Q9967

== ENCOUNTER 2025-04-28 11:21 | Emergency (ER) | payer BC, OTHER ==
[~2025-04-28] VITALS: Ht 154.9 cm; Wt 58.5 kg
[~2025-04-28 11:21] MED LIST changes: +TRAMADOL HCL50 MG PO
--- OUTSIDE RECORDS SUMMARY | 2025-04-28 11:22 | XMS ---
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 [facility] has no Care Guidelines for this patient. Stephany VISIT COUNT (12 MO.) 2 [facility] Li TOTAL 2 NOTE: Visits indicate total known visits. ED/C VISIT TRACKING (12 MO.) 04/28/2025 11:21 [facility] TYPE: Emergency COMPLAINT: - BACK PAIN 10/12/2024 07:00 [facility] TYPE: Emergency COMPLAINT: - ABDOMINAL PAIN DIAGNOSES: - Allergy status to other antibiotic agents - Allergy status to penicillin - Allergy status to sulfonamides - Hormone replacement therapy - Latex allergy status - Personal history of nicotine dependence - Right upper quadrant pain INPATIENT VISIT TRACKING (12 MO.) No inpatient visits to display in this time frame [id number]
[2025-04-28] MEDS ORDERED: LIDODERM1 EACH TOP (12:08)
[2025-04-28] MEDS ORDERED: CYCLOBENZAPRINE10 MG PO (12:08)
[2025-04-28] MEDS ORDERED: CYCLOBENZAPRINE HCL 10 MG HOME.PACK PO ONE (12:15)
[2025-04-28] MEDS ORDERED: GABAPENTIN 300 MG CAP PO ONE (12:15)
[2025-04-28] MEDS ORDERED: LIDOCAINE HCL 4% 1 EACH PATCH TD ONE (12:15)
[2025-04-28] MEDS ORDERED: CYCLOBENZAPRINE HCL 10 MG TAB PO ONE (12:15)
[2025-04-28 12:30] VITALS: BP 118/72
[2025-04-28] MEDS ORDERED: LIDOCAINE PATCH REMOVAL 1 EA TD SCH (21:00)
== END 2025-04-28 12:35 | disposition home or self-care (01) ==
LOC: ED 11:21
DX: M54.50 Low back pain, unspecified (principal); E03.9 Hypothyroidism, unspecified; Z79.899 Other long term (current) drug therapy; Z88.0 Allergy status to penicillin; Z88.1 Allergy status to other antibiotic agents; Z91.040 Latex allergy status; Z87.891 Personal history of nicotine dependence
CPT/HCPCS: 99283; A9270